=== PATIENT | female | born 1935 | race Caucasian/White ===

== ENCOUNTER → 2024-10-08 10:57 | Outpatient (BNVA) | payer MEDICARE, SELFPAY | PROVIDERS: Visit Provider Registered Nurse | DX: E11.9 Type 2 diabetes mellitus without complications (principal) | CPT/HCPCS: 80048; 83036 ==

== ENCOUNTER → 2024-10-24 11:00 | Outpatient (BNVA) | payer MEDICARE, SELFPAY | PROVIDERS: PCP Registered Nurse; Visit Provider Nurse Practitioner Family | DX: E11.9 Type 2 diabetes mellitus without complications (principal); D64.9 Anemia, unspecified | CPT/HCPCS: 80053; 85025 ==

== ENCOUNTER → 2024-10-30 09:05 | Outpatient (BNVA) | payer MEDICARE, SELFPAY | PROVIDERS: PCP Registered Nurse; Visit Provider Registered Nurse | DX: R19.7 Diarrhea, unspecified (principal) | CPT/HCPCS: 82270 ==

== ENCOUNTER 2024-11-02 10:46 | Outpatient (CLI) | payer MEDICARE, SELFPAY ==
--- NOTE | 2024-11-02 11:15 | US_ITS ---
WS: [id number] Exam: US renal BI* [id number] Date/Time of Exam: 11/02/2024 11:06 AM Reason For Exam: N28.9 - Disorder of kidney and ureter, unspecified Evaluation of the RIGHT kidney shows a prominent simple cyst along the lateral margin at mid pole. This measures 4.2 x 4.8 x 4.6 cm. Mild diffuse atrophy of the RIGHT kidney noted. The RIGHT kidney measures 9.5 x 4.7 x 4.5 cm. RIGHT renal cortex measures 1 cm greatest thickness. No obstruction. LEFT kidney. An indeterminate lesion seen laterally along the mid pole. This could either be a complex cyst or a solid mass. This measures 1.8 x 1.7 x 1.4 cm. No other discrete lesions of the LEFT kidney were noted. The LEFT kidney measures 9.2 x 5 x 4.4 cm. LEFT renal cortex measures 9 mm in greatest thickness. Mild diffuse atrophy of the LEFT kidney. No obstruction noted. US/US renal BI* [id number] IMPRESSION: 1. Indeterminate lesion along the lateral margin of the LEFT kidney at mid pole . This could either be a complex cyst or a solid lesion. This measures 1.8 x 1. 7 x 1.4 cm. Follow-up with CT with and without contrast recommended. 2. Prominent simple cyst in the RIGHT kidney that measures 4.8 cm in greatest d iameter. 3. Mild generalized atrophy of both kidneys. No renal obstruction.
== END 2024-11-02 10:47 | disposition home or self-care (01) ==
PROVIDERS: PCP Registered Nurse; Visit Provider Nurse Practitioner Family
DX: N28.9 Disorder of kidney and ureter, unspecified (principal); N28.1 Cyst of kidney, acquired; N26.1 Atrophy of kidney (terminal)
CPT/HCPCS: 76770

== ENCOUNTER 2024-11-27 14:26 | Outpatient (CLI) | payer MEDICARE, SELFPAY ==
--- NOTE | 2024-11-27 14:30 | CT_ITS ---
WS: [id number] CT ABDOMEN AND PELVIS NONCONTRAST HISTORY: N28.9 - Disorder of kidney and ureter, unspecified TECHNIQUE: Imaging performed through the abdomen and pelvis. Coronal and sagittal reformats are submitted. All CT scans at [facility] use at least one of these dose optimization techniques: automated exposure control; mA and/or kV adjustment per patient size (includes targeted exams where dose is matched to clinical indication); or iterative reconstruction. DLP: 613.86 mGy.cm COMPARISON: None available. Lower thorax: Chronic emphysematous changes at the lung bases. Normal size heart. Moderate size hiatal hernia. Liver: Normal size liver. No mass or bile duct dilatation. Gallbladder: Normal gallbladder. No pericholecystic fluid or cholelithiasis. No gallbladder wall thickening. Pancreas: Mild fatty atrophy. No mass or pancreatitis. Spleen: Normal. Adrenal glands: Normal. No mass. Right kidney: 9.3 cm in length. No hydronephrosis. Well-circumscribed mass from the mid lateral kidney measures 4.7 x 4.9 x 5.0 cm. This mass was noted to be a cyst on a recent ultrasound. Left kidney: 8.3 cm in length. Hyperdense mass exophytic from the mid lateral kidney measures 1.6 x 1.4 x 1.6 cm. This corresponds to the more solid-appearing mass by ultrasound. This is probably a complex cyst containing hemorrhage or increased protein. Aorta: Moderate calcification within the aorta. Very tiny amount of free fluid in the pelvis. No adenopathy. GI tract: Stomach is not distended. No small bowel obstruction. Colonic anastomosis in the descending colon with no obstruction. No mass. Prior appendectomy. No colitis. Abdominal wall: Ventral abdominal wall hernias containing fat only. There is a small umbilical hernia. There are additional supraumbilical hernias. Pelvis: Atrophic fibroid uterus with calcifications. 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 No compression fractures. Osteophytic ridging around the femoral heads. Subchondral cyst in the RIGHT femoral head. CT/CT abdomen pelvis wo con [id number] IMPRESSION: 1. Low normal size RIGHT kidney. 2. Simple cyst mid RIGHT kidney, 4.7 x 4.9 x 5.0 cm. 3. Mild atrophy LEFT kidney, 8.3 cm in length. 4. Hyperdense exophytic mass from the mid lateral kidney, 1.6 x 1.4 x 1.6 cm. Noted to be of increased echogenicity on ultrasound. Favor this is probably a b enign cyst containing increased proteinaceous material. This can be followed by serial ultrasound evaluation to document no continued increase in size. Consid er follow-up ultrasound in 6 months. 5. Moderate atherosclerotic calcification abdominal aorta. 6. Fibroid uterus. 7. Prior appendectomy.
== END 2024-11-27 14:27 | disposition home or self-care (01) ==
LOC: RAD 14:27
PROVIDERS: PCP Registered Nurse; Visit Provider Registered Nurse
DX: N28.9 Disorder of kidney and ureter, unspecified (principal); K44.9 Diaphragmatic hernia without obstruction or gangrene; J43.9 Emphysema, unspecified; K86.89 Other specified diseases of pancreas; N28.1 Cyst of kidney, acquired; K63.89 Other specified diseases of intestine; Z90.49 Acquired absence of other specified parts of digestive tract; K42.9 Umbilical hernia without obstruction or gangrene; N85.8 Other specified noninflammatory disorders of uterus; M51.379 Other intervertebral disc degeneration, lumbosacral region without mention of lumbar back pain or lower extremity pain
CPT/HCPCS: 74176